=== PATIENT | male | born 1975 | race Caucasian/White ===

== ENCOUNTER 2018-09-01 02:43 | Emergency (ER) | payer SELFPAY ==
[~2018-09-01] VITALS: Ht 182.9 cm; Wt 75.0 kg
[2018-09-01 02:45] VITALS: BP 111/74
[2018-09-01] MEDS ORDERED: ONDANSETRON ODT 4 MG PO ONE (03:00)
[2018-09-01] MEDS ORDERED: SODIUM CHLORIDE 0.9% 1,000ML IVBOLUS ONE (03:30)
[2018-09-01] MEDS ORDERED: KETOROLAC 30 MG/1 ML IVPush ONE (03:30)
[2018-09-01 03:37] LABS: ANION GAP 9 mmol/L (5-15); CALCIUM 8.4 mg/dL (8.5-10.1); CHLORIDE 110 mmol/L (98-107); CREATININE 0.83 mg/dL (0.7-1.3)
[2018-09-01] MEDS ORDERED: KETOROLAC 30 MG/1 ML ONE (03:45)
== END 2018-09-01 04:11 | disposition home or self-care (01) ==
LOC: ED 04:00
DX: R11.2 Nausea with vomiting, unspecified (principal); E86.0 Dehydration; R10.84 Generalized abdominal pain; F17.210 Nicotine dependence, cigarettes, uncomplicated; R19.7 Diarrhea, unspecified
CPT/HCPCS: 36415; 80048; 96374; 99284; J1885; J7030

== ENCOUNTER 2021-02-23 21:51 | Emergency (ER) | payer MEDICAID ==
[~2021-02-23] VITALS: Ht 182.9 cm; Wt 71.6 kg
[2021-02-23 21:53] VITALS: BP 168/105
[2021-02-23] MEDS ORDERED: ONDANSETRON ODT 8 MG ONE (22:20)
[2021-02-23 22:55] LABS: BASOPHILS % (AUTO) 1 % (0-1); EOSINOPHILS % (AUTO) 3 % (1-7); LYMPHOCYTES % (AUTO) 37 % (22-44); MEAN CORPUSCULAR HEMOGLOBIN 30.8 pg (27.5-34.5); MEAN CORPUSCULAR HGB CONC 34.3 g/dL (33.2-36.2); MONOCYTES % (AUTO) 7 % (2-9); NEUTROPHILS % (AUTO) 51 % (42-75); PLATELET COUNT 306 x10^3/uL (130-400); RED BLOOD COUNT 5.17 x10^6/uL (4.38-5.82); RED CELL DISTRIBUTION WIDTH 12.9 % (9.4-14.8)
[2021-02-23 22:56] LABS: MD NO
[2021-02-23 23:01] LABS: ALBUMIN 4.2 g/dL (3.4-5.0); ANION GAP 5 mmol/L (5-15); CALCIUM 9.1 mg/dL (8.5-10.1); CHLORIDE 110 mmol/L (98-107)
[2021-02-23 23:06] LABS: ALANINE AMINOTRANSFERASE 34 U/L (12-78); ALKALINE PHOSPHATASE 58 U/L (45-117); BILIRUBIN,TOTAL 0.3 mg/dL (0.2-1.0); CREATININE 0.99 mg/dL (0.7-1.3); TOTAL PROTEIN 7.8 g/dL (6.4-8.2); TROPONIN I < 0.015 ng/mL (0.000-0.045)
== END 2021-02-24 00:13 | disposition home or self-care (01) ==
LOC: ED 02-24 00:01
DX: R07.89 Other chest pain (principal)
CPT/HCPCS: 36415; 71045; 80053; 84484; 85025; 93005; 99285